=== PATIENT | male | born 1960 | race Caucasian/White ===

== ENCOUNTER 2017-02-21 08:47 | Outpatient (CLI) | payer BC ==
[~2017-02-21] VITALS: Ht 167.6 cm; Wt 109.6 kg
--- NOTE | ~2017-02-21 | CATH ---
Cardiac Diagnostic Report Demographics Patient Name IMCHELLE Pulido Gender Male Date of 1960 Age 56 year(s) Patient Number [id number] Date of Study 02/21/2017 Visit Number [id number] Room Number Corporate ID Ht 167.64 cm Wt 109.6 kg Referring Carllye Quiros Primary Physician Physician [facility] Secondary Physician Physician Nya HORN Diagnostic [facility] Assisting Physician Physician Nya HORN Interventional Physician Cloth Measurer Machine Physician Findings and Conclusions Diagnostic Findings and Conclusion Ectatic LAD, no significant obstructive CAD. LVEDP is normal, 15 mmHg. No pulmonary HTN. PA sat = 64%, RA sat = 62% Mean PA = 20 mmHg. PCW = 13 mmHg. Diagnostic Recommendations Medical management. Consider pulmonary work up for symptoms of sob. Continue regular medications. Aggressive medical therapy. Recommend aggressive risk factor modification. Procedure Description The patient was brought to the diagnostic cardiac catheterization-EP laboratory in the fasting, non-sedated state. Informed consent was obtained in the written and verbal form after the risks and benefits were explained. The patient had no further questions and agreed to proceed. The planned puncture-incision site(s) were shaved and prepped with ChloraPrep and draped in the usual sterile manner. Conscious sedation, supplemental oxygen, and pain control medications were delivered by a registered nurse under physician guidance. Surface ECG rhythm, blood pressure measurement, and pulse oximetry were monitored throughout the procedure. Arterial access. The access site was infiltrated with lidocaine. The vessel was entered with the Seldinger technique. A sheath was advanced into the vessel and used for catheter placement. Venous access. The access site was infiltrated with 2% lidocaine. The vessel was entered with the Seldinger technique. A sheath was advanced into the vessel and used for catheter placement. Selective left coronary angiography. A catheter was advanced into the left coronary vessel ostium under Fluoroscopic guidance. Contrast was injected by hand. Images were obtained in multiple projections. Selective right coronary angiography. A catheter was advanced into the right coronary vessel ostium under fluoroscopic guidance. Contrast was injected by hand. Images were obtained in multiple projections. Left heart catheterization. A catheter was advanced across the aortic valve to the left ventricle under fluoroscopic guidance. Resting hemodynamics were obtained. Right heart catheterization. A Imler Manolo catheter was successfully advanced to the right atrium, right ventricle, pulmonary artery, and pulmonary artery wedge position under fluoroscopic guidance. Resting hemodynamics were obtained. Measurements included pressures, arterial and venous oxygen saturation samples, and cardiac output. The Imler was removed without difficulty. Arterial and Venous hemostasis was achieved. The patient was transferred to a regular nursing floor via cart accompanied by a nurse. The patient left the laboratory in stable condition. Diagnostic Cath Status: Elective Procedure Procedure Type Diagnostic procedure:Angiography:, Right and Left Heart Cath, Coronary Angios Indications: Unstable angina, Dyspnea with exertion, Shortness of breath w/exertion and Positive Nuclear: Intermediate. The procedure was explained in detail to the patient. Risks, complications and alternative treatments were reviewed. Written consent was obtained. Medications Reviewed with Patient prior to Procedure. Angiographic Findings Dominance: Cardiac Arteries and Lesion Findings LMCA: Normal (0% Stenosis). LAD: Normal (0% Stenosis).Ectatic LCx: Normal (0% Stenosis). RCA: Normal (0% Stenosis). Procedure Data Procedure Date Date: 02/21/2017Start: 11:44 AMEnd: 12:22 PM Entry Locations - Retrograde Percutaneous access was performed through the Right Radial artery (Primary location). A 6 Fr sheath was inserted. Hemostasis was successfully obtained using Mechanical Compression. Closure Comments: 12 ml. - Antegrade Percutaneous access was performed through the Right Brachial vein. A 6 Fr sheath was inserted. Hemostasis was successfully obtained using Manual Compression. Procedure Medications Order and Administration + + + + + !Time !Medication !Dosage !Route ! + + + + + !02/21/2017 11:55 AM !Verapamil !5 mg !I.A. ! + + + + + !02/21/2017 11:56 AM !Heparin (ACC_3) !5000 units !I.V. bolus ! + + + + + Devices Used - A6 Fr. Balloon Wedge Catheterwas used for:Right heart cath. - A5 Fr. BS JR 4 Diag. Catheterwas used for:Right coronary angiography. - A5 Fr. BS JL 3.5 Diag. Catheterwas used for:Left coronary angiography. - A5 Fr. BS Angled Pigtail Diag. Catheterwas used for:LV Pressures. Contrast Material - Isovue 83097 ml Fluoroscopy Time: Diagnostic: 4:24 minutes. Total: 4:24 minutes. Fluoroscopy Dose: Diagnostic: 690 mGy. Total: 690 mGy. Medical History Risk Factors The patient risk factors include:hypertension, family history of premature CAD, orally-treated diabetes mellitus, last creatinine: 1 mg/dl, creatinine clearance: 129.39 ml/min, dyslipidemia and former tobacco use. Admission Data Admission Date: 02/21/2017 Admission Time: 12:00 AM Admit Source: Other Insurance Payors: Private health insurance. Admission Medications + +------+------+ + + + + !Medication !Dosage!Times !Last !Last !Administered !Comments ! ! ! !Per !Delivery !Delivery ! ! ! ! ! !Day !Date !Time ! ! ! + +------+------+ + + + + !LEROY ! ! ! ! ! ! ! !Inhibitor ! ! ! ! ! ! ! !(any) ! ! ! ! ! ! ! + +------+------+ + + + + !Aspirin ! ! ! ! ! ! ! !(any) ! ! ! ! ! ! ! + +------+------+ + + + + !Beta Megan! ! ! ! ! ! ! !(any) ! ! ! ! ! ! ! + +------+------+ + + + + !Nitrates (iv! ! ! ! ! ! ! !or buccal) ! ! ! ! ! ! ! + +------+------+ + + + + !Statin (any)! ! ! ! ! ! ! + +------+------+ + + + + Clinical Evaluation Leading to Procedure - The patient's CAD presentation was assessed as: Unstable angina. - The patient's anginal syndrome during the past two weeks was assessed as: Class III according to the [place] Cardiovascular Society Classification System (CCS). Anti-anginal medications were prescribed during the past two weeks. The medications are: Beta Blockers and Long Acting Nitrates. - The patient has been in a state of heart failure within the past two weeks. - The patient's heart failure status was assessed as NYHA Class III. Hemodynamics Condition: Rest O2 Consumption: Estimated: 253.67Heart Rate: 66 bpm Oxygen Saturation +--------+-----+----+ +----+ + !Location!pCO2 !pO2 !% Saturation !Hgb !O2 Content ! +--------+-----+----+ +----+ + !PA ! ! !63.5 !14.6! ! +--------+-----+----+ +----+ + !RA ! ! !62.8 !14.6! ! +--------+-----+----+ +----+ + !AO ! ! !93.4 !14.6! ! +--------+-----+----+ +----+ + Pressures (mmHg) +-----+ + !Site !Pressure ! +-----+ + !PA !16 (20) ! +-----+ + !PCW !18 (13) ! +-----+ + !RV !32/ ,12 ! +-----+ + !RA !07/08 (9) ! +-----+ + !AO !108/69 (86) ! +-----+ + !LV !120/8 ,15 ! +-----+ + !LV !115/7 ,15 ! +-----+ + !AO !116/69 (90) ! +-----+ + !LV !119/8 ,15 ! +-----+ + Cardiac Output +------+ + + + !Method!CO (l/min) !CI (l/min/m2) !SV (ml) ! +------+ + + + !Ambika !4.27 ! !64.98 ! +------+ + + + Valve Gradients and Areas + +--------+--------+--------+---------+ + + !Valve !Peak !Mean !Area !Index !Flow !Source ! + +--------+--------+--------+---------+ + + !Aortic !3 !5 !2.22 ! !219.76 !Ambika ! + +--------+--------+--------+---------+ + + !Aortic !3 !5 ! ! ! ! ! + +--------+--------+--------+---------+ + + Shunts Oxygen Values O2 Capacity 198.56 O2 Consumption 253.67 Flows (l/min) Qs 4.17 Qe/Qp 0.98 Qp 4.27 Qp/Qs 1.02 Qe 4.17 Vascular Resistance (dynes x sec x cm-5) + +-----+-----+----+----+---------+-------+ !CO method !TSVR !SVR !TPVR!PVR !TPVR/TSVR!PVR/SVR! + +-----+-----+----+----+---------+-------+ !Ambika !21.07!19 !4.73!1.76!0.22 !0.09 ! + +-----+-----+----+----+---------+-------+ !Qp or Qs !21.58!19.45!4.73!1.76!0.22 !0.09 ! + +-----+-----+----+----+---------+-------+ Signatures dtt: NYA LEMUS dtd: 02/21/17 1144 Physician Self Edit
[~2017-02-21 08:47] MED LIST: ASPIRIN LO-DOSE81 MG PO; CPAP INH; DISALCID750 MG PO; GLUCOPHAGE500 MG PO; HYDRODIURIL25 MG PO; IMDUR30 MG PO; LIPITOR40 MG PO; MAVIK2 MG PO; THERA-VITE W/ B1 TAB PO; TOPROL XL 5050 MG PO
[2017-02-21 09:42] LABS: BASOPHIL % 0.6 %; EOSINOPHIL # 0.2 K/uL (0.0-0.5); HEMATOCRIT 41.1 % (37.0-53.0); HEMOGLOBIN 14.6 g/dL (12.0-17.0); IMMATURE GRANULOCYTE % 0.6 %; LYMPHOCYTE % 20.1 %; MCH 31.3 pg (27.0-34.0); MCHC 35.5 gm/dL (32.0-36.5); MONOCYTE # 0.5 K/uL (0.0-1.0); MONOCYTE % 9.3 %; MPV 8.8 fl (9.4-12.4); NEUTROPHIL # (ANC) 3.3 K/uL (1.4-9.0); NEUTROPHIL % 66.4 %; NRBC % 0 /100WBC (0-0.00); PLATELET COUNT 188 K/uL (150-450); RBC 4.67 M/uL (4.00-6.00); RDW-CV 12.4 % (11.9-14.6); WBC 4.9 K/uL (4.0-11.0)
[2017-02-21 09:48] LABS: PROTIME 10.5 SECONDS (9.8-11.4)
[2017-02-21 09:56] LABS: ALBUMIN 3.6 gm/dL (3.5-5.0); ANION GAP 10.1 (10.0-19.0); CALCIUM 8.9 mg/dL (8.5-10.5); POTASSIUM 4.1 mMol/L (3.7-5.1); TOTAL BILIRUBIN 0.4 mg/dL (0.0-1.5); TOTAL PROTEIN 7.3 g/dL (6.0-8.4)
== END 2017-02-21 15:10 | disposition disaster alternative care site (69) ==
LOC: GPCU 08:47 → GCAT 08:47 → GPOC 09:00 → GCAT 15:10 → GPOC 16:00
PROVIDERS: Internal Medicine Interventional Cardiology
DX: I20.0 Unstable angina (principal)
CPT/HCPCS: C1769; C1894; J1644; J2001; J2250; J3010; J7030